=== PATIENT | female | born 1995 | race Caucasian/White ===

== ENCOUNTER 2016-11-28 17:07 | Emergency (ER) | payer OTHER ==
[2016-11-28] MEDS ORDERED: ONDANSETRON 4 MG/2 ML VIAL ONE (17:10)
[2016-11-28] MEDS ORDERED: ONDANSETRON 4 MG/2 ML VIAL IVP ONE ×2 (17:13→17:30)
[2016-11-28] MEDS ORDERED: NS 1,000 ML IV ONE (17:13)
--- NOTE | 2016-11-28 17:15 | EDPHY ---
H & P Time Seen by Provider: 11/28/16 17:10 HPI/ROS: CHIEF COMPLAINT: Intoxication HISTORY OF PRESENT ILLNESS: The patient is a 21-year-old female who was at a constitution party drinking and possibly doing cocaine. Witnesses became concerned because she was passed out and began vomiting. Here she is alert and answering questions appropriately. She does continue to retch. She denies any depression or suicidal ideation. She denies any assault or medical complaints other than the vomiting. REVIEW OF SYSTEMS: Constitutional: denies: chills, fever, recent illness, recent injury EENTM: denies: blurred vision, double vision, nose congestion Respiratory: denies: cough, shortness of breath Cardiac: denies: chest pain, irregular heart rate, lightheadedness, palpitations Gastrointestinal/Abdominal: See HPI Genitourinary: denies: dysuria, frequency, hematuria, pain Musculoskeletal: denies: joint pain, muscle pain Skin: denies: lesions, rash, jaundice, bruising Neurological: denies: headache, numbness, paresthesia, tingling, dizziness, weakness Hematologic/Lymphatic: denies: blood clots, easy bleeding, easy bruising Immunologic/allergic: denies: HIV/AIDS, transplant EXAM: GENERAL: Vomit on close, well-nourished and in no acute distress. HEAD: Atraumatic, normocephalic. EYES: Pupils equal round and reactive to light, extraocular movements intact, sclera anicteric, conjunctiva are normal. ENT: TMs normal, nares patent, oropharynx clear without exudates. Moist mucous membranes. NECK: Normal range of motion, supple without lymphadenopathy or JVD. LUNGS: Breath sounds clear to auscultation bilaterally and equal. No wheezes rales or rhonchi. HEART: Regular rate and rhythm without murmurs, rubs or gallops. ABDOMEN: Soft, nontender, normoactive bowel sounds. No guarding, no rebound. No masses appreciated. BACK: No CVA tenderness, no spinal tenderness, step-offs or deformities EXTREMITIES: Normal range of motion, no pitting or edema. No clubbing or cyanosis. NEUROLOGICAL: Cranial nerves II through XII grossly intact. Normal speech, normal gait. 5/5 strength, normal movement in all extremities, normal sensation PSYCH: Normal mood, normal affect. SKIN: Warm, dry, normal turgor, no visible rashes or lesions. Source: Patient Exam Limitations: No limitations - Medical/Surgical History Hx Asthma: No Hx Chronic Respiratory Disease: No Hx Diabetes: No Hx Cardiac Disease: No Hx Renal Disease: No Hx Cirrhosis: No Hx Alcoholism: No - Family History Significant Family History: No pertinent family hx - Social History Smoking Status: Never smoked Alcohol Use: Sober Drug Use: None Constitutional: Initial Vital Signs Temperature (C) 36.7 C 11/28/16 17:13 Heart Rate 84 11/28/16 17:13 Respiratory Rate 18 11/28/16 17:13 Blood Pressure 117/73 11/28/16 17:13 O2 Sat (%) 98 11/28/16 17:13 O2 Delivery Mode Room Air Allergies/Adverse Reactions: No Known Allergies Allergy (Unverified 11/28/16 17:12) Home Medications: Medication Instructions Recorded Albuterol 11/28/16 Control Pills 11/28/16 Medical Decision Making ED Course/Re-evaluation: 6:40 p.m. the patient tells me she is feeling much better. She would like to go home. Her boyfriend is here to take her. She is no longer vomiting and is tolerating ice chips. She has no complaints. She is crying because she does not want her parents to have to pay for this. Differential Diagnosis: Partial list of the Differential diagnosis considered include but were not limited to; intoxication, substance abuse and although unlikely based on the history and physical exam, I also considered gastritis, head injury, assault, infection. I discussed these differential diagnoses and the plan with the patient as well as the usual and expected course. The patient understands that the diagnosis is provisional and that in medicine we are not always correct and that further workup is often warranted. Usual and customary warnings were given. All of the patient's questions were answered. The patient was instructed to return to the emergency department should the symptoms at all worsen or return, otherwise to followup with the physician as we discussed. - Data Points Medications Given: Discontinued Medications Sodium Chloride (Ns) 1,000 mls @ 0 mls/hr IV ONCE ONE PRN Reason: Wide Open Stop: 11/28/16 17:14 Last Admin: 11/28/16 17:14 Dose: 1,000 mls Ondansetron HCl (Zofran) 4 mg IVP EDNOW ONE Stop: 11/28/16 17:14 Last Admin: 11/28/16 17:15 Dose: 4 mg Ondansetron HCl (Zofran) 4 mg IVP EDNOW ONE Stop: 11/28/16 17:31 Last Admin: 11/28/16 17:42 Dose: 4 mg Departure - Departure Disposition: Home, Routine, Self-Care Clinical Impression: Alcoholic intoxication Qualifiers: Complication of substance-induced condition: uncomplicated Qualified Code(s): F10.920 - Alcohol use, unspecified with intoxication, uncomplicated Condition: Fair Instructions: Alcohol Intoxication (ED) Referrals: [facility] GUILLAUME Tracy,. [Clinic] - As per Instructions
[2016-11-28 18:18] VITALS: RESP 16; O2SAT 95
[2016-11-28 19:19] VITALS: BP 126/77; PULSE 69; TEMP 98.6
== END 2016-11-28 19:19 | disposition home or self-care (01) ==
DX: F10.920 Alcohol use, unspecified with intoxication, uncomplicated (principal); R11.10 Vomiting, unspecified
CPT/HCPCS: 96374; J2405

== ENCOUNTER 2017-01-21 22:06 | Observation (INO) | payer OTHER ==
[2017-01-21 22:17] VITALS: RESP 16
--- NOTE | 2017-01-21 22:41 | EDPHY ---
H & P Stated Complaint: Rash and VO HPI/ROS: HPI CHIEF COMPLAINT: Diffuse rash. HISTORY OF PRESENT ILLNESS: This patient very pleasant 21-year-old female she is otherwise healthy no significant medical history except asthma she presents emergency room with flu-like illness. She reports since Wednesday she has some what felt ill with flu-like illness symptoms. She reports to me that she had some muscle aches and joint pain which have pretty much resolved she did developed sore throat a week ago but it kind of went away. She now reports to the emergency room with a diffuse rash. This rash appears morbilliform. It is raised and sandpaper like. Diffusely. Spares palms and soles. She does have an erythematous throat without significant exudate or swelling on exam. Additionally she reports a headache. She denies stiff neck. Past Medical History: Denies significant medical history except for asthma Past Surgical History: No surgical history Social History: Denies daily use of drugs alcohol tobacco. Family History: Noncontributory. ROS REVIEW OF SYSTEMS: A comprehensive 10 point review of systems is otherwise negative aside from elements mentioned in the history of present illness. Exam Constitutional appears well nontoxic, triage nursing summary reviewed, vital signs reviewed, awake/alert. Vital signs stable trash. Afebrile. Eyes normal conjunctivae and sclera, EOMI, PERRLA. HENT posterior pharynx is deep erythema, no significant exudate, no significant swelling, moist mucus membranes, no epistaxis, neck supple/ no meningismus, no raccoon eyes. Respiratory clear to auscultation bilaterally, normal breath sounds, no respiratory distress, no wheezing. Cardiovascular rate normal, regular rhythm, no murmur, no edema, distal pulses normal. Gastrointestinal soft, non-tender, no rebound, no guarding, normal bowel sounds, no distension, no pulsatile mass. Genitourinary no CVA tenderness. Musculoskeletal neck is supple, no meningeal signs, no midline vertebral tenderness, full range of motion, no calf swelling, no tenderness of extremities , no meningismus, good pulses, neurovascularly intact. Skin diffuse rash, spares palms and soles. Morbilliform like. Sandpaper like. No petechiae. No purpura Neurologic awake, alert and oriented x 3, AAOx3, moves all 4 extremities equally, motor intact, sensory intact, CN II-XII intact, normal cerebellar, normal vision, normal speech. Psychiatric normal mood/affect. Heme/Lymph/Immune no lymphadenopathy. Differential Diagnosis: Includes but is not limited to in a particular order viral syndrome, upper respiratory tract infection, strep pharyngitis, influenza , doubt meningitis given history review of systems and clinical picture. Medical Decision Making: Plan for this patient rapid strep, check influenza, basic blood work, UA. Gentle IV hydration re-evaluate. Re-evaluation: 1216: Had a lengthy discussion with the patient as family. After extensive workup for rash and flu-like illness fever like illness her strep test is negative mono is negative urine is clean blood work is unremarkable no high white count. She does not have a fever here. However she did come to the emergency room to rule out meningitis. She does report that she had a sick contact in her sorority house that had meningitis. She is in-house of 80 other females. She resides on a different floor than this person. She had no contact with this person. However she is concerned given neck pain and headache that she has meningitis. Clinically she appears well nontoxic. She has a morbilliform sandpaper like rash no particular purpura. I think it is unlikely to be meningitis however after great discussion with her and her family she would like to proceed with lumbar puncture and spinal tap to rule this out. She understands the risk versus benefit of the spinal tap. This includes bleeding, infection, nerve injury, post LP headache. Risk versus benefits have been discussed extensively with her. She agrees for spinal tap. Procedure: Lumbar puncture. Indication: Neck pain, headache. Rash. After verbal informed consent from patient explaining the risks including infection, bleeding, and neurologic damage, a lumbar puncture was performed after the patient was prepped and draped in the usual fashion. The back was anesthetized with 1% lidocaine. Approximately 4 cc of clear fluid was obtained. Opening pressure was not obtained. There were no complications. The procedure was performed by myself. 0145: CSF studies returned. CSF studies indicate elevated white count but normal glucose and protein. The white count did trend up from tube 1 to tube 4 in the red-count trended down. This is most likely accurate CSF specimens. Given that her white count is trending up from tube 1 to tube 4 will admit for meningitis. Will placed on isolation precautions. Additionally will give antibiotics empirically Rocephin and vancomycin until her Gram stain returns and /or culture. I have talked to Dr. Fernández she agrees to admit the patient. Updated the patient family at bedside. 0205AM: Spoke with Dr. Gary Santiago with Infectious Disease. He understands patient be admitted to the hospitalist service. Will consult Source: Patient - Personal History LMP (Females 10-55): 1-7 Days Ago Current Tetanus/Diphtheria Vaccine: No Current Tetanus Diphtheria and Acellular Pertussis (TDAP): No - Medical/Surgical History Hx Asthma: Yes Hx Chronic Respiratory Disease: No Hx Diabetes: No Hx Cardiac Disease: No Hx Renal Disease: No Hx Cirrhosis: No Hx Alcoholism: No Hx HIV/AIDS: No Hx Splenectomy or Spleen Trauma: No Other PMH: asthma - Social History Smoking Status: Never smoked Constitutional: Initial Vital Signs Temperature (C) 36.7 C 01/21/17 22:14 Heart Rate 78 01/21/17 22:14 Respiratory Rate 16 01/21/17 22:14 Blood Pressure 117/74 01/21/17 22:14 O2 Sat (%) 96 01/21/17 22:14 O2 Delivery Mode Room Air Allergies/Adverse Reactions: No Known Allergies Allergy (Verified 01/21/17 22:17) Home Medications: Medication Instructions Recorded Albuterol [Proventil Inhaler HFA 1 - 2 puffs IH DAILY PRN 11/28/16 (*)] Acetaminophen [Tylenol 325mg (*)] 325 mg PO DAILY PRN 01/22/17 Flovent Unk Dose 1 puffs IH DAILY PRN 01/22/17 Gildess Bc 1 each PO DAILY 01/22/17 Medical Decision Making - Data Points Laboratory Results: Laboratory Results 01/21/17 22:55 01/21/17 22:55 Microbiology Results: MICROBIOLOGY 01/22/17 00:30 Cerebral Spinal Fluid Gram Stain - Final 01/22/17 00:30 Cerebral Spinal Fluid CSF Culture - Preliminary Medications Given: Discontinued Medications Acetaminophen (Tylenol) 650 mg PO Q4HRS PRN PRN Reason: Pain, Mild/Fever, Can Take PO Stop: 07/21/17 01:51 Last Admin: 01/22/17 08:24 Dose: 650 mg Sodium Chloride (Ns) 1,000 mls @ 0 mls/hr IV EDNOW ONE; Wide Open PRN Reason: Protocol Stop: 01/21/17 22:51 Last Admin: 01/21/17 22:57 Dose: 1,000 mls Sodium Chloride (Ns) 1,000 mls @ 0 mls/hr IV ONCE ONE PRN Reason: Wide Open Stop: 01/22/17 00:17 Last Admin: 01/22/17 00:37 Dose: 1,000 mls Ceftriaxone Sodium 2 gm/ (Dextrose) 50 mls @ 100 mls/hr IV EDNOW ONE PRN Reason: Protocol Stop: 01/22/17 01:57 Last Admin: 01/22/17 01:49 Dose: 50 mls Vancomycin/Sodium Chloride (Vancomycin 1 Gm (Premix)) 250 mls @ 250 mls/hr IV EDNOW ONE PRN Reason: Protocol Stop: 01/22/17 02:27 Last Admin: 01/22/17 02:36 Dose: 250 mls Sodium Chloride (Ns) 1,000 mls @ 100 mls/hr IV CONT LEONID Stop: 07/21/17 01:59 Last Admin: 01/22/17 04:28 Dose: 1,000 mls Departure - Departure Disposition: [facility] Clinical Impression: Rash, Meningitis Condition: Fair
[2017-01-21] MEDS ORDERED: NS 1,000 ML IV ONE (22:50)
[2017-01-21 23:09] LABS: % IMMATURE GRANULYOCYTES 0.5 % (0.0-1.1); ABSOLUTE IMMATURE GRANULOCYTES 0.03 10^3/uL (0.00-0.10); ADD DIFF? NO; ADD MORPH? NO; ADD SCAN? NO; ATYPICAL LYMPHOCYTE FLAG 30 (0-99); FRAGMENT RBC FLAG 0 (0-99); HEMATOCRIT 39.3 % (38.0-47.0); HEMOGLOBIN 13.5 g/dL (12.6-16.3); LEFT SHIFT FLG 0 (0-99); LIPEMIA HEMOLYSIS FLAG 90 (0-99); MEAN CELL HEMOGLOBIN 30.3 pg (27.9-34.1); MEAN CELL HEMOGLOBIN CONCENTR. 34.4 g/dL (32.4-36.7); MEAN CELL VOLUME 88.1 fL (81.5-99.8); MEAN PLATELET VOLUME 8.4 fL (8.7-11.7); PLATELET CLUMPS FLAG 10 (0-99); PLATELET COUNT 236 10^3/uL (150-400); RED BLOOD CELL COUNT 4.46 10^6/uL (4.18-5.33); RED CELL DISTRIBUTION WIDTH 12.5 % (11.5-15.2)
[2017-01-21 23:11] LABS: STREP SCREEN RAPID NEGATIVE (NEGATIVE)
[2017-01-21 23:21] LABS: ALANINE AMINOTRANSFERASE 34 IU/L (9-52); ALBUMIN 4.2 g/dL (3.5-5.0); ALKALINE PHOSPHATASE 53 IU/L (38-126); ANION GAP 12 mEq/L (8-16); ASPARTATE AMINOTRANSFERASE 26 IU/L (14-46); BILIRUBIN,TOTAL 0.2 mg/dL (0.1-1.4); BILIRUBIN-CONJUGATED 0.1 mg/dL (0.0-0.5); BILIRUBIN-UNCONJUGATED 0.1 mg/dL (0.0-1.1); CALCIUM 9.3 mg/dL (8.5-10.4); CARBON DIOXIDE 25 mEq/l (22-31); CHLORIDE 106 mEq/L (97-110); CREATININE 0.8 mg/dL (0.6-1.0); GLOMERULAR FILTRATION RATE > 60; GLUCOSE 84 mg/dL (70-100); POTASSIUM 3.7 mEq/L (3.5-5.2); SODIUM 143 mEq/L (134-144); TOTAL PROTEIN 6.8 g/dL (6.3-8.2)
[2017-01-21 23:35] LABS: COLOR PALE YELLOW; LEUKOCYTE ESTERASE,URINE NEGATIVE (NEGATIVE); NITRITE,URINE NEGATIVE (NEGATIVE)
[2017-01-22] MEDS ORDERED: NS 1,000 ML IV ONE (00:16)
[2017-01-22 01:04] LABS: PROTEIN, CSF 34 mg/dL (12-60)
[2017-01-22 01:09] LABS: CSF APPEARANCE CLEAR (CLEAR); CSF COLOR COLORLESS (COLORLESS); CSF SUPERNATANT COLORLESS (COLORLESS); WBC, CSF 30 /mm3 (0-5)
[2017-01-22 01:22] LABS: CSF APPEARANCE CLEAR (CLEAR); CSF COLOR COLORLESS (COLORLESS); CSF SUPERNATANT COLORLESS (COLORLESS); WBC, CSF 210 /mm3 (0-5)
[2017-01-22] MEDS ORDERED: cefTRIAXone 2 GM in D5W 50 ML IV ONE (01:28)
[2017-01-22] MEDS ORDERED: VANCOMYCIN HCL/NORMAL SALINE 250 ML IV ONE (01:28)
[2017-01-22] MEDS ORDERED: ONDANSETRON 4 MG/2 ML VIAL IVP PRN (01:52)
[2017-01-22] MEDS ORDERED: ACETAMINOPHEN 325 MG TAB PO PRN (01:52)
[2017-01-22] MEDS ORDERED: LORazepam 0.5 MG TAB PO PRN (01:52)
[2017-01-22] MEDS ORDERED: PROMETHAZINE HCL 25 MG/ML INJ IVP PRN (01:52)
[2017-01-22] MEDS ORDERED: HYDROCODONE/APAP 5/325 TAB PO PRN (01:52)
[2017-01-22] MEDS ORDERED: NS 1,000 ML IV SCH (02:00)
[2017-01-22 07:31] VITALS: TEMP 101.4
[2017-01-22 07:41] LABS: % IMMATURE GRANULYOCYTES 0.2 % (0.0-1.1); ABSOLUTE IMMATURE GRANULOCYTES 0.01 10^3/uL (0.00-0.10); ADD DIFF? NO; ADD MORPH? NO; ADD SCAN? NO; ATYPICAL LYMPHOCYTE FLAG 30 (0-99); FRAGMENT RBC FLAG 0 (0-99); HEMATOCRIT 34.8 % (38.0-47.0); LEFT SHIFT FLG 0 (0-99); LIPEMIA HEMOLYSIS FLAG 90 (0-99); MEAN CELL HEMOGLOBIN 30.4 pg (27.9-34.1); MEAN CELL HEMOGLOBIN CONCENTR. 34.5 g/dL (32.4-36.7); MEAN CELL VOLUME 88.1 fL (81.5-99.8); MEAN PLATELET VOLUME 8.6 fL (8.7-11.7); PLATELET CLUMPS FLAG 0 (0-99); PLATELET COUNT 187 10^3/uL (150-400); RED BLOOD CELL COUNT 3.95 10^6/uL (4.18-5.33); RED CELL DISTRIBUTION WIDTH 12.4 % (11.5-15.2)
[2017-01-22 07:51] LABS: ANION GAP 10 mEq/L (8-16); CALCIUM 8.2 mg/dL (8.5-10.4); CARBON DIOXIDE 21 mEq/l (22-31); CHLORIDE 111 mEq/L (97-110); CREATININE 0.8 mg/dL (0.6-1.0); GLOMERULAR FILTRATION RATE > 60; GLUCOSE 89 mg/dL (70-100); POTASSIUM 3.6 mEq/L (3.5-5.2); SODIUM 142 mEq/L (134-144)
--- NOTE | 2017-01-22 09:35 | PDGENHP ---
History and Physical - Chief Complaint rash, headache - History of Present Illness Source - patient provides history and appears reliable. mother at bedside and supplements details. case discussed with ED provider and EMR reviewed. HPI - Pleasant 21 yo F with pmhx significant for asthma who presents to the ED today with complaints of diffuse rash and headache. Patient reports viral uri type symptoms ongoing for the past 1 week. 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 Patient reports one girl was admitted with viral meningitis recently and so patient became concerned. Patient reports subjective fevers/chills, muscle aches, joint pain and sore throat 1 week ago that have resolved. patient earlier on also noted nausea with 1 episode of vomiting. no diarrhea. patient has had decreased appetite but has been trying to stay hydrated. she continues to have a little bit of nasal congestion. no sore throat. no cough/sob. she has continued to have a mild headache. patient denies any changes in vision or neck pain/ stiffness. Patient states rash was noticed in the evening on her chest/back/ abdomen. it is not pruritic. History Information - Allergies/Home Medication List Allergies/Adverse Reactions: No Known Allergies Allergy (Verified 01/21/17 22:17) Home Medications: Albuterol 11/28/16 [Last Taken Unknown] Acetaminophen [Tylenol 325mg (*)] 325 mg PO DAILY PRN 01/22/17 [Last Taken Unknown] Flovent Unk Dose 1 puffs IH DAILY PRN 01/22/17 [Last Taken Unknown] Gildess Bc 1 each PO DAILY 01/22/17 [Last Taken Unknown] I have personally reviewed and updated: family history, medical history, social history, surgical history - Past Medical History asthma - Surgical History Additional surgical history: none - Family History Additional family history: no fhx asthma. all other family members healthy. - Social History Smoking Status: Never smoked Alcohol Use: Rarely Drug Use: None Additional social history: Patient [employer] student [facility]. COR - FULL. mother Ellen Bray-Teofilo proxy if needed. Review of Systems Review of Systems: ROS: 10pt was reviewed & negative except for what was stated in HPI & below Physical Exam Physical Exam: Selected Entries 01/22/17 01/22/17 00:00 03:26 Blood Pressure Automatic Method Heart Rate 65 83 Respiratory 16 16 Rate O2 Sat (%) 98 95 Temperature (C) 36.9 C Blood Pressure 123/84 H 106/62 Mean Arterial 97 76 Pressure (MAP) Activity During At Rest Vital Signs O2 Delivery Room Air Mode Temperature Oral Source Cardiac Rhythm Normal Sinus Rhythm ST Segment No Change Review of Yes Continuous Monitoring Alarm History Alarm Yes Parameters Assessed Temp Pulse Resp BP Pulse Ox 38.6 C H 84 16 122/67 H 97 01/22/17 07:30 01/22/17 07:30 01/22/17 07:30 01/22/17 07:30 01/22/17 07:30 Constitutional: no apparent distress, appears nourished, not in pain, other ( NAd. pleasant young adult female lays comfortably in bed. fatigued. flushed but nontoxic appearing. ) Eyes: PERRL, anicteric sclera, EOMI, No pale conjunctiva, No scleral injection Ears, Nose, Mouth, Throat: dry mucous membranes, No no oral mucosal ulcers, No poor dentition Cardiovascular: regular rate and rhythym, no murmur, rub, or gallop, systolic murmur Peripheral Pulses: 2+: dorsalis-pedis (R), dorsalis-pedis (L) Respiratory: no respiratory distress, no rales or rhonchi, clear to auscultation Gastrointestinal: normoactive bowel sounds, soft, non-tender abdomen, no palpable masses, No tenderness, No distension Genitourinary: no bladder tenderness, No vance in urethra Skin: normal color, rash (patient flushed. faint dry rash arms/chest noted, slight back. ) Musculoskeletal: full muscle strength, other (sits up independently. moves all extremities. ), No generalized weakness Neurologic: AAOx3, sensation intact bilaterally, CN II-XII Intact, facial droop , other (neck without decreased ROM/stiffness. neg meningeal signs.), No numbness Lab Data & Imaging Review 01/22/17 07:22 01/22/17 07:22 WBC 5.38 10^3/uL (3.80-9.50) 01/22/17 07:22 RBC 3.95 10^6/uL (4.18-5.33) L 01/22/17 07:22 Hgb 12.0 g/dL (12.6-16.3) L 01/22/17 07:22 Hct 34.8 % (38.0-47.0) L 01/22/17 07:22 MCV 88.1 fL (81.5-99.8) 01/22/17 07:22 MCH 30.4 pg (27.9-34.1) 01/22/17 07:22 MCHC 34.5 g/dL (32.4-36.7) 01/22/17 07:22 RDW 12.4 % (11.5-15.2) 01/22/17 07:22 Plt Count 187 10^3/uL (150-400) 01/22/17 07:22 MPV 8.6 fL (8.7-11.7) L 01/22/17 07:22 Neut % (Auto) 68.0 % (39.3-74.2) 01/22/17 07:22 Lymph % (Auto) 23.8 % (15.0-45.0) 01/22/17 07:22 [place] % (Auto) 6.9 % (4.5-13.0) 01/22/17 07:22 Eos % (Auto) 0.9 % (0.6-7.6) 01/22/17 07:22 Baso % (Auto) 0.2 % (0.3-1.7) L 01/22/17 07:22 Nucleat RBC Rel Count 0.0 % (0.0-0.2) 01/22/17 07:22 Absolute Neuts (auto) 3.66 10^3/uL (1.70-6.50) 01/22/17 07:22 Absolute Lymphs (auto) 1.28 10^3/uL (1.00-3.00) 01/22/17 07:22 Absolute Monos (auto) 0.37 10^3/uL (0.30-0.80) 01/22/17 07:22 Absolute Eos (auto) 0.05 10^3/uL (0.03-0.40) 01/22/17 07:22 Absolute Basos (auto) 0.01 10^3/uL (0.02-0.10) L 01/22/17 07:22 Absolute Nucleated RBC 0.00 10^3/uL (0-0.01) 01/22/17 07:22 Immature Gran % 0.2 % (0.0-1.1) 01/22/17 07:22 Immature Gran # 0.01 10^3/uL (0.00-0.10) 01/22/17 07:22 Sodium 142 mEq/L (134-144) 01/22/17 07:22 Potassium 3.6 mEq/L (3.5-5.2) 01/22/17 07:22 Chloride 111 mEq/L (97-110) H 01/22/17 07:22 Carbon Dioxide 21 mEq/l (22-31) L 01/22/17 07:22 Anion Gap 10 mEq/L (8-16) 01/22/17 07:22 BUN 6 mg/dL (7-23) L 01/22/17 07:22 Creatinine 0.8 mg/dL (0.6-1.0) 01/22/17 07:22 Estimated GFR > 60 01/22/17 07:22 Glucose 89 mg/dL (70-100) 01/22/17 07:22 Calcium 8.2 mg/dL (8.5-10.4) L 01/22/17 07:22 Total Bilirubin 0.2 mg/dL (0.1-1.4) 01/21/17 22:55 Conjugated Bilirubin 0.1 mg/dL (0.0-0.5) 01/21/17 22:55 Unconjugated Bilirubin 0.1 mg/dL (0.0-1.1) 01/21/17 22:55 AST 26 IU/L (14-46) 01/21/17 22:55 ALT 34 IU/L (9-52) 01/21/17 22:55 Alkaline Phosphatase 53 IU/L (38-126) 01/21/17 22:55 Total Protein 6.8 g/dL (6.3-8.2) 01/21/17 22:55 Albumin 4.2 g/dL (3.5-5.0) 01/21/17 22:55 Lipase 110 IU/L (23-300) 01/21/17 22:55 Beta HCG, Qual NEGATIVE 01/21/17 22:55 Urine Color PALE YELLOW 01/21/17 23:15 Urine Appearance CLEAR 01/21/17 23:15 Urine pH 5.0 (5.0-7.5) 01/21/17 23:15 Ur Specific [place] 1.005 (1.002-1.030) 01/21/17 23:15 Urine Protein NEGATIVE (NEGATIVE) 01/21/17 23:15 Urine Ketones NEGATIVE (NEGATIVE) 01/21/17 23:15 Urine Blood NEGATIVE (NEGATIVE) 01/21/17 23:15 Urine Nitrate NEGATIVE (NEGATIVE) 01/21/17 23:15 Urine Bilirubin NEGATIVE (NEGATIVE) 01/21/17 23:15 Urine Urobilinogen NEGATIVE EU (0.2-1.0) 01/21/17 23:15 Ur Leukocyte Esterase NEGATIVE (NEGATIVE) 01/21/17 23:15 Urine Glucose NEGATIVE (NEGATIVE) 01/21/17 23:15 CSF Tube Number 1 01/22/17 00:30 CSF Appearance CLEAR (CLEAR) 01/22/17 00:30 CSF Color COLORLESS (COLORLESS) 01/22/17 00:30 CSF Supernatant COLORLESS (COLORLESS) 01/22/17 00:30 CSF WBC 30 /mm3 (0-5) H 01/22/17 00:30 CSF RBC 7 /mm3 (0-0) H 01/22/17 00:30 CSF Neutrophils % 98 % (0-6) H 01/22/17 00:30 CSF Lymphocytes % 2 % (0-100) 01/22/17 00:30 CSF Monos/Macrophage % 2 % (0-45) 01/22/17 00:19 CSF Glucose 50 mg/dL (50-75) 01/22/17 00:30 CSF Total Protein 34 mg/dL (12-60) 01/22/17 00:30 Nasal Influenza A PCR NEGATIVE FOR FLU A (NEGATIVE) 01/21/17 22:55 Nasal Influenza B PCR NEGATIVE FOR FLU B (NEGATIVE) 01/21/17 22:55 Monoscreen NEGATIVE (NEGATIVE) 01/21/17 22:55 Group A Strep Screen NEGATIVE (NEGATIVE) 01/21/17 22:55 Assessment & Plan Assessment: Pleasant 21 yo F with pmhx asthma and 1 week history of uri sx now with c/o headache and rash. 1. headache - concerning for possible meningitis althought patient without any meningeal signs her LP was significant for elevated neutrophils. smear neg for organisms. glucose/protein levels WNL. awaiting further studies on CSF fluid. Patient started on vanco and rocephin in the ED. will continue with treatment dose rocephin 2gm q12 hr. ID consultation requested. patient on respiratory precautions pending 2. rash - supportive care. 3. asthma - sx controlled. continue flovent and albuterol. FEN - IVF overnight. electrolyte replacement prn. diet as tolerated. PPX - SCDs. holding anticoagulation s/p LP. COR - FULL. mother Ellen proxy if needed. Dispo - admit to observation on medical floor pending ID recommendations/lab results.
--- NOTE | 2017-01-22 09:59 | ASMTCMCOM ---
CM Note CM Note Notes: Chart reviewed. Patient admitted to R/O meningitis. 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 Plan home independent. Date Signed: 01/22/2017 09:59 AM Electronically Signed By:Susana Trinh RN
--- NOTE | 2017-01-22 11:05 | PCMIDPN ---
Assessment/Plan: Patient seen and examined. Symptoms and Spinal fluid reviewed, suspect viral meningitis. DC antibiotics and droplet and contact precautions. Discharge okay from the ID standpoint. Will follow up on additional lab test. The dictation to follow Objective: Vital Signs Temp Pulse Resp BP Pulse Ox 38.6 C H 84 16 122/67 H 97 01/22/17 07:30 01/22/17 07:30 01/22/17 07:30 01/22/17 07:30 01/22/17 07:30 Laboratory Results 01/22/17 07:22 01/22/17 07:22 01/21/17 01/22/17 01/23/17 05:59 05:59 05:59 Intake Total 2500 Output Total 250 Balance 2500 -250 ICD10 Worksheet Patient Problems: Problems Problem Status Onset Meningitis Acute Rash Acute
[2017-01-22] MEDS ORDERED: ALBUTEROL 200 PUFFS/18 GM MDI IH PRN (11:17)
[2017-01-22] MEDS ORDERED: FLOVENT IH PRN (11:17)
--- NOTE | 2017-01-22 11:19 | HOSPPROG ---
Hospitalist Progress Note Assessment/Plan: Pleasant 21 yo F with pmhx asthma and 1 week history of uri sx now with c/o headache and rash. *viral meningitis most likely dc abx further f/u with Dr Stephens having ongoing fevers *rash *asthma Flovent and albuterol Plan: dc home, further f/u with Dr Stephens, reviewed w her s/sx of a spinal leak Subjective: Saira has no complaints. Objective: Vital Signs Temp Pulse Resp BP Pulse Ox 38.6 C H 84 16 122/67 H 97 01/22/17 07:30 01/22/17 07:30 01/22/17 07:30 01/22/17 07:30 01/22/17 07:30 Laboratory Results 01/22/17 07:22 01/22/17 07:22 01/21/17 01/22/17 01/23/17 05:59 05:59 05:59 Intake Total 2500 Output Total 250 Balance 2500 -250 - Physical Exam Constitutional: no apparent distress, appears nourished, not in pain Eyes: PERRL Ears, Nose, Mouth, Throat: hearing normal Cardiovascular: regular rate and rhythym Respiratory: no respiratory distress Skin: warm Musculoskeletal: full muscle strength Neurologic: AAOx3 Psychiatric: interacting appropriately ICD10 Worksheet Patient Problems: Problems Problem Status Onset Meningitis Acute Rash Acute
[2017-01-22 11:52] VITALS: BP 114/60; PULSE 67; O2SAT 95
[2017-01-22] MEDS ORDERED: cefTRIAXone 2 GM in D5W 50 ML IV SCH (13:00)
--- NOTE | 2017-01-22 19:09 | GCON ---
[f rep st] CONSULTATION INFECTIOUS DISEASE CONSULTATION. DATE OF CONSULTATION: 01/22/2017 PROVIDER REQUESTING CONSULTATION: Sandra Fernández. REASON FOR CONSULTATION: Meningitis. HISTORY OF PRESENT ILLNESS: A 21-year-old woman with past medical history of asthma, whose problems date back to 01/18/2017, when she developed a flu-like illness with nausea and anorexia. Patient on 01/20/2017, developed sudden onset of headache, but as the day progressed it somewhat improved and sandy manzo was able to go to a yoga class. She described the headache as bitemporal. Subsequently, the , 01/21/2017, she developed a rash and presented to the emergency room for further evalua tion. 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 She had no associated shortness of corona ath or cough. No diarrhea and she, in fact, denies neck stiffness. One of her sorority sisters did have meningitis. Therefore, patient presented with specific request to completely rule out meningiti s in the emergency room. Patient subsequently underwent a lumbar puncture, which showed 4, 210 WBCs, 92% neutrophils, glucose of 50, protein of 34. Influenza was negative as well as respirat ory panel PCR. Patient was admitted to the hospital overnight, received IV fluids and high-dose ceftriaxone and vanc omycin. She did not receive steroids. Overnight, she feels significantly improved and this morning has had significant intake with water, dean. Tylenol is controlling her headache adequately. No history of oral ulcerations or cold sores. No travel. Last travel was over the summer to [facility]. She denies any arthropod bites. No camping. She also noticed a rash on her chest, abdomen t hat is not paretic. PAST MEDICAL HISTORY: Asthma. PAST SURGICAL HISTORY: None. FAMILY HISTORY: Negative for any respiratory chronic illness. HOME MEDICATIONS: Include albuterol, acetaminophen, Flovent and control pills. Inpatient she received 1 dose of vancomycin and was on ceftriaxone 2 g IV q.12. SOCIAL HISTORY: Never smoked. Occasional alcohol. No drug use. 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 Her parents live nearby and her father is at bedside. She is sexually active. She and her boyfriend use condoms and she is on control. She has never had a history of an STD. REVIEW OF SYSTEMS: A complete 10-point review of systems was performed and is negative as mentioned in the HPI. PHYSICAL EXAM: VITAL SIGNS: Temperature 38.6, BP 122/67, HR was 84. Patient, generally appeared ve ry comfortable, had fluent speech, nontoxic. HEENT: Pupils are reactive bilaterally. No conjunctiva l hemorrhages. Oropharynx: Moist mucous membranes. No oral ulcerations. NECK: Was without meningis mus. CARDIOVASCULAR: Regular rate, no murmurs. CHEST: Clear to auscultation bilaterally. ABDOMEN : Soft, nontender. NEUROLOGIC: Patient was moving all 4 extremities without focal neurologic defici t grossly noted. No cranial nerve deficits. SKIN: Patient had a very faint macular papular eruption on her chest that appeared to be subsiding. MUSCULOSKELETAL: No joint swelling. No lower extremit y edema. LABORATORY: White count 5.3, hematocrit 38, platelets 187, 68% neutrophils, 23% lymphocytes. Creati nine 0.8. LFTs within normal limits. Beta hCG was negative. Urinalysis was negative. Spinal fluid as per HPI. Group A negative screen. [place] screen negative. Enterovirus PCR in the CSF was negativ e. Spinal fluid Gram stain was negative and cultures are pending. IMAGING: None was performed. ASSESSMENT AND PLAN: This is a 21-year-old healthy woman, who presents with fever, headache, and jenna h with a lumbar puncture showing mild aseptic meningitis. Notably, patient with a mild neutrophilic cell count likely reflecting early disease but strongly suspect viral meningitis. Patient does have a history of meningococcal vaccination and MMR before presenting to [facility]. Due to strong suspicion for viral meningitis, discontinue IV antibiotics and if patient is tolerating p.o. okay to discharge to home. Warnings were given to patient: For worsening symptoms to return to the emergency room as well as lo ng as 2 week recovery from acute illness. Follow up with ID as needed. We will call patient with enteroviral PCR results. /[id number]/MODL
--- NOTE | 2017-01-22 23:19 | GDS ---
[f rep st] DISCHARGE SUMMARY DISCHARGE DIAGNOSES: 1. Viral meningitis. 2. Rash. 3. Asthma. CONSULTATION: Dr. Sally Stephens HISTORY: Briefly, the patient is a 21-year-old female who presented to the emergency room with compl aints of diffuse rash and headache. She describes having upper respiratory type infections for the p ast week. She also has multiple sick contacts. She resides in a sorority house. She said 1 girl wa s admitted with viral meningitis recently, and she became concerned. She reported that she had fever , chills and muscle aches and joint pain. She also noticed that she had a rash that was mostly on he r chest, back and abdomen. It was not noted to be pruritic. She had an LP that was performed that s howed it was elevated for neutrophils; glucose and protein levels were stable. Dr. Stephens came and e valuated her, felt that she did not need any further IV antibiotics, that this was viral. She will f ollow up with Dr. Stephens in the outpatient setting. In addition, I reviewed with the patient and her mother the signs and symptoms of a headache secondary from a lumbar puncture, in case she should dev elop a CSF leak. HOSPITAL COURSE: 1. Most likely viral meningitis. Further followup with Dr. Stephens. She was having ongoing fevers t aster. 2. Rash, improved. 3. Asthma. Resumed her Flovent and albuterol. DISCHARGE CONDITION: Stable. Blood pressure is 122/67, respiratory rate 16, pulse is 84, temperatur e 38.6 Celsius, O2 sats on room air 96%. MEDICATIONS AT DISCHARGE: Please see the EMR. DISCHARGE INSTRUCTIONS: 1. Recommending that she does not fly if she continues to feel poorly. 2. To return to the ER, if she develops a spinal type headache. 3. Further followup with Dr. Stephens. /[id number]/MODL
[2017-01-23] MEDS ORDERED: [UNRECOGNIZED DRUG - OTHER] PO SCH (09:00)
--- NOTE | 2017-01-23 14:17 | ASDISCHSUM ---
Discharge Information Plan Status: Medically Cleared to Leave: Discharge Date:01/22/2017 12:35 PM CM D/C Disposition: ADT D/C Disposition:Home, Routine, Self-Care Projected Discharge Date:01/22/2017 12:35 PM Transportation at D/C: Discharge Delay Reason: Follow-Up Date:01/22/2017 12:35 PM Discharge Slot: Final Diagnosis: Placement Information Patient Contact Information Contact Name:TASNEEM Relationship:Mother Address:[address] City:[place] Alternate Phone: [facility]/Zip Code:[place] [address] Email: Financial Information Financial Class:HMO and PPO Plans Primary Plan Desc:[employer] [place] [employer] Primary Plan Number:[id number] Secondary Plan Desc:[employer] [facility] Secondary Plan Number:[id number] Assessment Information LACE LACE Length of stay for Answers: Less than 1 day current admission Acuity / Level of Care Answers: Was the patient admitted to hospital via the emergency department? Yes: Emergency dept visits in Answers: 1 last 6 months Score: 4 Date Signed: 01/22/2017 09:57 AM Electronically Signed By:Susana Trinh RN [facility] CM Progress Note CM Note CM Note Notes: Chart reviewed. Patient admitted to R/O meningitis. 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 Plan home independent. Date Signed: 01/22/2017 09:59 AM Electronically Signed By:Susana Trinh RN Intervention Information
[2017-01-25 17:34] LABS: ENTEROVIRUS BY PCR Positive (Negative); SPECIMEN SOURCE ENTEROVIRUS SPINAL TAP
== END 2017-01-22 12:35 | disposition home or self-care (01) ==
LOC: F3N 01-22 03:04
PROVIDERS: ADMIT Family Medicine; ATTEND Family Medicine
PROC: 009U3ZX Drainage of Spinal Canal, Percutaneous Approach, Diagnostic (ICD-10-PCS; principal; 2017-01-22)
DX: A87.9 Viral meningitis, unspecified (principal); R21 Rash and other nonspecific skin eruption; J45.909 Unspecified asthma, uncomplicated
CPT/HCPCS: 62270; G0378; 87798-90; 96374; J0696; J3370